=== PATIENT | male | born 1995 ===

== ENCOUNTER 2017-10-29 13:26 | Emergency (ER) | payer OTHER ==
[2017-10-29 13:45] VITALS: BP 114/60; PULSE 61; RESP 18; TEMP 97; O2SAT 98
[2017-10-29] MEDS ORDERED: Sodium Chloride 0.9% 1,000 ML IV STA (14:27)
[2017-10-29 15:00] LABS: BASO % 0.2 % (0.0-2.0); EOS # 0.1 K/uL (0.0-0.7); EOS % 0.7 % (0.0-4.0); HEMOGLOBIN 14.3 g/dL (12.0-18.0); LYMPH # 1.5 K/uL (1.0-4.3); LYMPH % 11.1 % (20.0-40.0); MEAN CELL VOLUME 83.2 fl (80.0-94.0); MEAN CORPUSCULAR HEMOGLOBIN 27.6 pg (27.0-31.0); MEAN CORPUSCULAR HGB CONC 33.1 g/dL (33.0-37.0); MEAN PLATELET VOLUME 10.5 fl (7.2-11.7); MONO % 7.2 % (0.0-10.0); NEUT # 10.9 K/uL (1.8-7.0); NEUT % 80.8 % (50.0-75.0); RBC 5.2 Mil/uL (4.40-5.90); RED CELL DISTRIBUTION WIDTH 12.8 % (11.5-14.5); WHITE BLOOD COUNT 13.5 K/uL (4.8-10.8)
[2017-10-29 15:14] LABS: ALB/GLOB RATIO 1.6 (1.0-2.1); ALBUMIN 4.4 g/dL (3.5-5.0); CALCIUM 9.2 mg/dL (8.4-10.2); GFR AFRICAN-AMERICAN > 60; GFR NON-AFRICAN AMERICAN > 60
[2017-10-29 15:16] LABS: ALT/SGPT 28 U/L (21-72); AST/SGOT 29 U/L (17-59); BLOOD UREA NITROGEN 12 mg/dl (9-20)
[2017-10-29 15:32] LABS: URINE BILIRUBIN NEGATIVE (NEGATIVE); URINE BLOOD NEGATIVE (NEGATIVE); URINE CLARITY SLIGHTY-CLOUDY (Clear); URINE COLOR YELLOW (YELLOW); URINE GLUCOSE (UA) NEG (Normal); URINE LEUKOCYTE ESTERASE NEG Leu/uL (Negative); URINE NITRATE NEGATIVE (NEGATIVE); URINE PROTEIN NEGATIVE (NEGATIVE)
[2017-10-29] MEDS ORDERED: Iohexol 300 100 ML IJ ONE (15:44)
[2017-10-29] MEDS ORDERED: Sodium Chloride 0.9% 50 ML IV ONE (15:45)
--- NOTE | 2017-10-29 17:27 | CT ---
PROCEDURE: CT Abdomen and Pelvis with contrast HISTORY: abdominal pain, diarrhea COMPARISON: None available. TECHNIQUE: Contrast dose: 95 mL Omnipaque 300 Radiation dose: Total exam DLP = 315.56 mGy-cm. This CT exam was performed using one or more of the following dose reduction techniques: Automated exposure control, adjustment of the mA and/or kV according to patient size, and/or use of iterative reconstruction technique. FINDINGS: LOWER THORAX: No visible consolidation, pleural effusion, or pneumothorax. LIVER: Unremarkable. GALLBLADDER AND BILE DUCTS: Unremarkable. PANCREAS: Unremarkable. SPLEEN: Unremarkable. ADRENALS: Unremarkable. KIDNEYS AND URETERS: The kidneys enhance symmetrically. No hydronephrosis or obstructing calculus identified. VASCULATURE: No aortic aneurysm. Enlarged subcutaneous varices bilateral inguinal/pelvic soft tissues. BOWEL: Stomach is nondistended. Lack of oral contrast limits evaluation for bowel pathology. Bowel loops appear within normal limits of caliber without evidence of obstruction. Small bowel wall thickening may be seen in setting of enteritis. APPENDIX: The appendix is not identified. PERITONEUM: No significant free fluid. No definite free air. LYMPH NODES: Sub cm prominent mesenteric lymph nodes, nonspecific. BLADDER: Unremarkable. REPRODUCTIVE: Unremarkable. BONES: Mildly diffuse increased density of the osseous structures; correlate clinically for possibility of underlying metabolic disorder. OTHER FINDINGS: None. IMPRESSION: Enlarged subcutaneous varices bilateral inguinal/pelvic soft tissues. Sub cm prominent mesenteric lymph nodes, nonspecific. Mesenteric adenitis not excluded. Small bowel wall thickening may be seen in setting of enteritis. Correlate clinically. The appendix is not identified. No right lower quadrant fluid or discrete inflammatory changes appreciated. Correlate clinically. Mildly diffuse increased density of the osseous structures; correlate clinically for possibility of underlying metabolic disorder.
--- NOTE | 2017-10-29 18:12 | ED PDOC ---
HPI: Abdomen Time Seen by Provider: 10/29/17 13:54 Chief Complaint (Nursing): GI Problem Chief Complaint (Provider): Diffuse abdominal pain History Per: Patient History/Exam Limitations: no limitations Onset/Duration Of Symptoms: Days Outside of [place] travel?: No Current Symptoms Are (Timing): Still Present Location Of Pain/Discomfort: Diffuse Quality Of Discomfort: Dull, Cramping Associated Symptoms: Nausea. denies: Fever, Chills, Vomiting, Loss Of Appetite Exacerbating Factors: None Alleviating Factors: None Additional Complaint(s): Pt also reports blood seen in toilet after BM last night. PT denies rectal pain with BM. Past Medical History Reviewed: Historical Data, Nursing Documentation, Vital Signs Vital Signs: Last Vital Signs Temp 97 F L 10/29/17 13:42 Pulse 61 10/29/17 13:42 Resp 18 10/29/17 13:42 BP 114/60 10/29/17 13:42 Pulse Ox 98 10/29/17 13:42 - Medical History PMH: No Chronic Diseases - Surgical History Surgical History: No Surg Hx - Family History Family History: States: No Known Family Hx - Living Arrangements Living Arrangements: With Family - Social History Current smoker - smoking cessation education provided: No - Home Medications Home Medications: Ambulatory Orders Medication Instructions Recorded Ibuprofen [Motrin Tab] 800 mg PO Q6H PRN #20 tab 10/29/17 - Allergies Allergies/Adverse Reactions: Allergies Allergy/AdvReac Type Severity Reaction Status Date / Time No Known Allergies Allergy Verified 10/29/17 13:42 Review of Systems ROS Statement: Except As Marked, All Systems Reviewed And Found Negative Constitutional: Negative for: Fever, Chills Respiratory: Negative for: Shortness of Breath Gastrointestinal: Positive for: Vomiting, Abdominal Pain Genitourinary Male: Negative for: Dysuria Skin: Negative for: Rash, Bruising Physical Exam - Reviewed Nursing Documentation Reviewed: Yes Vital Signs Reviewed: Yes - Physical Exam Appears: Positive for: Well, Non-toxic, No Acute Distress Head Exam: Positive for: ATRAUMATIC, NORMAL INSPECTION, NORMOCEPHALIC Skin: Positive for: Normal Color, Warm, DRY Eye Exam: Positive for: Normal appearance ENT: Positive for: Normal ENT Inspection Neck: Positive for: Normal, Painless ROM Cardiovascular/Chest: Positive for: Regular Rate, Rhythm Respiratory: Positive for: Normal Breath Sounds. Negative for: Accessory Muscle Use, Respiratory Distress Gastrointestinal/Abdominal: Positive for: Bowel Sounds, Soft, Tenderness ( Diffuse ). Negative for: Normal Exam Back: Positive for: Normal Inspection Extremity: Positive for: Normal ROM Neurologic/Psych: Positive for: Alert, Oriented - Laboratory Results Result Diagrams: 10/29/17 14:50 10/29/17 14:50 - ECG O2 Sat by Pulse Oximetry: 98 Medical Decision Making Medical Decision Making: CT - enteritis Disposition - Clinical Impression Clinical Impression: Mesenteric adenitis - Patient ED Disposition Is Patient to be Admitted: No Counseled Patient/Family Regarding: Diagnosis, Need For Followup, Rx Given - Disposition Disposition: Routine/Home Disposition Time: 18:12 Condition: GOOD Prescriptions: Ibuprofen [Motrin Tab] 800 mg PO Q6H PRN #20 tab PRN Reason: Pain Instructions: Mesenteric Adenitis (ED)
== END 2017-10-29 18:50 | disposition home or self-care (01) ==
LOC: H.ER 13:26
DX: I88.0 Nonspecific mesenteric lymphadenitis (principal)
CPT/HCPCS: 74177; 80053; 81003; 85025; 87086; 96361; 96374; 99282; J1885; J7040; Q9967